=== PATIENT | male | born 1940 | race Caucasian/White ===

== ENCOUNTER 2019-05-08 08:40 | Emergency (ER) | payer OTHER ==
[~2019-05-08] VITALS: Ht 175.3 cm; Wt 81.7 kg
[2019-05-08] MEDS ORDERED: TRADJENTA5 MG (08:57)
[2019-05-08] MEDS ORDERED: COZAAR 25 MG TA25 M1 PO (08:58)
[2019-05-08] MEDS ORDERED: ATORVASTATIN CA20 MG PO (08:58)
[2019-05-08] MEDS ORDERED: ASA81BEC PO (08:58)
[2019-05-08] MEDS ORDERED: FINASTERIDE5 MG PO (08:59)
[2019-05-08] MEDS ORDERED: FLUTICASONE PRO30 G1 TOP (08:59)
[2019-05-08] MEDS ORDERED: COLACE1 EAC1 RECTAL (09:00)
[2019-05-08] MEDS ORDERED: SENNA PLUS TAB1 EACH PO (09:00)
[2019-05-08 10:40] VITALS: BP 106/59
== END 2019-05-08 10:47 | disposition home or self-care (01) ==
LOC: ER 08:40
DX: K59.00 Constipation, unspecified (principal)